=== PATIENT | male | born 1960 | race Two or more races ===

== ENCOUNTER 2022-10-17 07:31 | Emergency (ER) | payer MEDICAID ==
[~2022-10-17] VITALS: Ht 157.5 cm; Wt 85.0 kg
[2022-10-17 08:19] VITALS: BP 140/77; PULSE 77; RESP 18; TEMP 97.9; O2SAT 95
[2022-10-17] MEDS ORDERED: cefTRIAXone SOD 1,000 MG VL IM ONE (08:30)
[2022-10-17] MEDS ORDERED: CEPH500C PO (08:34)
[2022-10-17] MEDS ORDERED: BACDST PO (08:34)
== END 2022-10-17 08:52 | disposition home or self-care (01) ==
LOC: ER 07:31
DX: S60.862A Insect bite (nonvenomous) of left wrist, initial encounter (principal); W57.XXXA Bitten or stung by nonvenomous insect and other nonvenomous arthropods, initial encounter; Y93.89 Activity, other specified; Y92.89 Other specified places as the place of occurrence of the external cause; Y99.8 Other external cause status
CPT/HCPCS: 96372; 99283; J0696

== ENCOUNTER 2023-07-18 05:34 | Emergency (ER) | payer MEDICAID ==
[~2023-07-18] VITALS: Ht 157.5 cm; Wt 90.0 kg
[~2023-07-18 05:34] MED LIST: BACDST PO; CEPH500C PO
[2023-07-18 05:45] VITALS: BP 126/81; TEMP 98.1; O2SAT 94
[2023-07-18 06:32] VITALS: PULSE 87; RESP 20
[2023-07-18] MEDS ORDERED: AMOX500T3 PO (06:54)
== END 2023-07-18 07:22 | disposition home or self-care (01) ==
LOC: ER 05:34
DX: K04.7 Periapical abscess without sinus (principal); R07.9 Chest pain, unspecified